=== PATIENT | female | born 1960 | race Caucasian/White ===

== ENCOUNTER 2023-01-01 20:34 | Emergency (ER) | payer OTHER ==
[2023-01-01] MEDS ORDERED: LIDOCAINE 1% INJ 10 ML VIAL INJ STA (20:58)
--- NOTE | 2023-01-01 20:58 | ED Upper Extremity ---
General Chief Complaint: Laceration Stated Complaint: L PINKY FINGER LAC Nursing Triage Note: Pt presents with a left pinky finger laceration from a garden sickle Source: patient History of Present Illness Date Seen by Provider: Jan 01, 2023 Time Seen by Provider: 20:58 Initial Comments 62-year-old female presenting with laceration to the left pinky finger. She was using a scythe in the garden to cut weeds and plants. It slipped and cut into her finger. She has full range of motion and sensation to the pinky finger. She was having trouble getting the bleeding controlled so she came to the ED. she also states it has been more than 5 years for her last tetanus shot. She denies any other injuries. Onset: just prior to arrival Severity: mild Pain/Injury Location: left 5th finger Method of Injury: incised Modifying Factors: Worse With Movement Allergies and Home Medications Allergies Coded Allergies: lincomycin (Verified Allergy, Unknown, 01/01/23) Patient Home Medication List Home Medication List Reviewed: Yes Amoxicillin/Potassium Clav (Amox Tr-K Clv 875-125 mg Tab) 875 Mg-125 Mg Tablet, 1 EACH PO BID Prescribed by: FLORENCE SO on 01/01/23 1337 Review of Systems Constitutional: No chills EENTM: no symptoms reported Respiratory: no symptoms reported Cardiovascular: no symptoms reported Gastrointestinal: no symptoms reported Genitourinary: no symptoms reported Musculoskeletal: see HPI Skin: see HPI Psychiatric/Neurological: Denies Numbness, Denies Paresthesia Past [id number] Hx Patient Social History Tobacco Use?: Yes Tobacco type used: Cigarettes Smoking Status: Current Everyday Smoker Use of E-Cig and/or Vaping dev: No Substance use?: No Alcohol Use?: No Pt feels they are or have been: No Physical Exam Vital Signs Vital Signs - First Documented 01/01/23 20:38 Pulse 78 Resp 18 B/P (MAP) 172/117 (135) Pulse Ox 95 O2 Delivery Room Air Capillary Refill : Less Than 3 Seconds Height, Weight, BMI Height: '" Weight: lbs. oz. kg; BMI Method: General Appearance: WD/WN, other (Mildly anxious) HEENT: PERRL/EOMI Cardiovascular: normal peripheral pulses Wrist: Yes normal inspection, Yes non-tender, Yes no evidence of injury, Yes normal ROM Hand: normal ROM, Left, laceration (1.9 cm laceration through the subcutaneous tissue down to the layer of the extensor tendons on the left pinky finger. This is over the PIP joint.) Neurologic/Tendon: normal sensation, normal motor functions, normal tendon functions Neurologic/Psychiatric: alert, oriented x 3 Skin: warm/dry Procedures/Interventions Wound Location: Upper Extremities (left pinky finger) Wound Length (cm): 1.9 Wound's Depth, Shape: linear, contused tissue, sub Q Wound Explored: clean Anesthesia: 1% Lidocaine Volume Anesthetic (ccs): 4 Suture: Ethlion Suture Size: 4-0 Number of Sutures: 6 Sterile Dressing Applied?: Yes Progress After obtaining verbal consent from the patient the wound was anesthetized with 1% plain lidocaine in a digital ring block fashion. Total of 4 mils were infiltrated for anesthetic effect. Then a turnicot was applied to help hold pressure and try and minimize bleeding. Wound was further cleaned with chlorhexidine scrub soap and sterile water. There were no foreign bodies visualized. It did appear that the surface of the extensor tendons were exposed but I did not appreciate any actual laceration of the tendon. The wound was approximated with 4-0 Ethilon stitches. A total of 5 simple interrupted stitches were placed across the wound margin and 1 additional stitch was placed perpendicular to this to achieve hemostasis with small arterial bleed. A clean dry pressure dressing was applied. Since the wound had gotten down to the level of the tendon but not involving the tendon a 5-day course of Augmentin will be prescribed to help try and prevent infection. Counseled on return precautions and advised to leave the stitches in place at least 14 days to allow it to heal over the joint space. Progress/Results/Core Measures Results/Orders My Orders Orders - FLORENCE SO MD Suture Set At Bedside (01/01/23 20:58) Wound Dressing-Ed (01/01/23 20:58) Lidocaine 1% Inj 10 Ml (Xylocaine 1% Inj (01/01/23 20:58) Lidocaine 1% Inj 20 Ml (Xylocaine 1% Inj (01/01/23 21:15) Lidocaine 1% Inj 20 Ml (Xylocaine 1% Inj (01/01/23 21:02) Amoxicillin/Clavulanate Tablet (Augmenti (01/01/23 21:56) Dipht,Pertuss(Acell),Tet Adult (Boostrix (01/01/23 22:15) Medications Given in ED Current Medications Medications Dose Ordered Sig/Patel Route Start Time Stop Time Status Last Admin Dose Admin Diphtheria/ Tetanus/Acell Pertussis 0.5 ml ONCE ONCE IM 01/01/23 22:15 01/01/23 22:16 DC 01/01/23 22:11 0.5 ML Lidocaine HCl 20 ml ONCE ONCE INJ 01/01/23 21:15 01/01/23 21:16 DC 01/01/23 22:12 20 ML Vital Signs/I&O 01/01/23 01/01/23 20:38 22:03 Pulse 78 78 Resp 18 18 B/P (MAP) 172/117 (135) 172/117 Pulse Ox 95 95 O2 Delivery Room Air Room Air Blood Pressure Mean: 135 Progress Progress Note : Progress Note Verbally consented patient for wound repair. Using 4-0 Ethilon a total of 6 simple interrupted stitches were placed. Wound edges were well approximated. Patient tolerated procedure well without any immediate complications. Counseled on follow-up and return precautions. Advised to have the stitches removed after at least 14 days. Counseled that she could return here if she likes to have the stitches removed. Counseled on return precautions to be seen sooner if she has signs of infection. Departure Impression Primary Impression: Laceration of little finger without foreign body without damage to nail Qualified Codes: S61.217A - Laceration without foreign body of left little finger without damage to nail, initial encounter Disposition: 01 HOME, SELF-CARE Condition: Stable Departure-Patient Inst. Decision time for Depature: 21:58 Referrals: RAJEEV MCKEON MD (PCP/Family) Primary Care Physician Patient Instructions: Laceration Repair With Stitches ED Add. Discharge Instructions: Keep wound clean and dry for the first 24 hours. After that you may remove the pressure dressing and wash with soap and water. Do not soak the wound as that can make the stitches come out or the wound open. The stitches should remain in at least 14 days to help the wound heal as it is over a joint. Take the antibiotics to help try and prevent infection. If you develop redness streaking up your hand, fever over 101 Fahrenheit, pus draining from the wound then you need to be seen for IV antibiotics and wound care. Follow-up with primary care provider for continued concerns. You may return here for removal of the stitches after 2 weeks. All discharge instructions reviewed with patient and/or family. Voiced understanding. Scripts Amoxicillin/Potassium Clav (Amox Tr-K Clv 875-125 mg Tab) 875 Mg-125 Mg Tablet 1 EACH PO BID for laceration for 5 Days, #10 TAB 0 Refills Prov: FLORENCE SO MD 01/01/23 FLORENCE SO MD Jan 01, 2023 20:58
[2023-01-01] MEDS ORDERED: LIDOCAINE 1% INJ 20 ML VIAL ONE (21:02)
[2023-01-01] MEDS ORDERED: LIDOCAINE 1% INJ 20 ML VIAL INJ ONE (21:15)
[2023-01-01] MEDS ORDERED: AUGMENTIN 875 MG TAB (AMOXICILLIN/CLAVULANATE) PO STA (21:56)
[2023-01-01] MEDS ORDERED: AMOX1TAB12 PO (21:59)
[2023-01-01 22:03] VITALS: BP 172/117
[2023-01-01] MEDS ORDERED: TETANUS,DIPTH,PERTUSS P/F (BOOSTRIX) 0.5 ML VIAL IM ONE (22:15)
== END 2023-01-01 22:19 | disposition home or self-care (01) ==
LOC: ER FS 20:37
DX: S61.217A Laceration without foreign body of left little finger without damage to nail, initial encounter (principal); F17.210 Nicotine dependence, cigarettes, uncomplicated; Z23 Encounter for immunization; Z88.1 Allergy status to other antibiotic agents; Z28.310 Unvaccinated for COVID-19; W26.8XXA Contact with other sharp object(s), not elsewhere classified, initial encounter; Y92.007 Garden or yard of unspecified non-institutional (private) residence as the place of occurrence of the external cause; Y93.H2 Activity, gardening and landscaping
CPT/HCPCS: 90715